=== PATIENT | male | born 1980 | race Two or more races ===

== ENCOUNTER 2017-03-03 14:20 | Emergency (ER) | payer OTHER ==
[~2017-03-03] VITALS: Ht 162.6 cm; Wt 77.1 kg
[2017-03-03 14:20] VITALS: BP 125/81
[2017-03-03] MEDS ORDERED: TDAP [DIPH/PERTUSSIS/TET] 0.5 ML VIAL IM ONE ×2 (14:36→15:00)
--- NOTE | 2017-03-03 14:45 | NUR ---
DAXA NORMAN AT BEDSIDE FOR LAC REPAIR
== END 2017-03-03 15:13 | disposition home or self-care (01) ==
LOC: ER 14:24
DX: S91.012A Laceration without foreign body, left ankle, initial encounter (principal); W22.8XXA Striking against or struck by other objects, initial encounter; Y93.89 Activity, other specified; Y92.89 Other specified places as the place of occurrence of the external cause; Y99.8 Other external cause status
CPT/HCPCS: 12002; 90471; 90715; 99283; A4606; A6402; J3490; Z7610

== ENCOUNTER 2017-03-05 20:51 | Emergency (ER) | payer OTHER ==
--- NOTE | 2017-03-05 21:30 | NUR ---
CALLED FOR TRIAGEL NOT IN LOBBY
--- NOTE | 2017-03-05 22:00 | NUR ---
CALLED AGAIN; NO ANSWER
--- NOTE | 2017-03-05 22:40 | NUR ---
STILL NO ANSWER WHEN CALLED FOR TRIAGE.
== END 2017-03-05 22:41 | disposition left against medical advice (07) ==
LOC: ER 20:53
DX: Z53.21 Procedure and treatment not carried out due to patient leaving prior to being seen by health care provider (principal)
CPT/HCPCS: A4606; Z7610

== ENCOUNTER 2017-03-07 22:30 | Emergency (ER) | payer OTHER ==
[~2017-03-07] VITALS: Ht 162.6 cm; Wt 77.1 kg
[2017-03-07 22:39] VITALS: BP 120/81
== END 2017-03-07 23:09 | disposition home or self-care (01) ==
LOC: ER 22:33
DX: S81.812D Laceration without foreign body, left lower leg, subsequent encounter (principal)
CPT/HCPCS: A4606; Z7502; Z7610

== ENCOUNTER 2019-01-17 15:06 | Emergency (ER) | payer OTHER ==
[~2019-01-17] VITALS: Ht 162.6 cm; Wt 80.3 kg
[2019-01-17 15:06] VITALS: BP 130/73
== END 2019-01-17 16:50 | disposition home or self-care (01) ==
LOC: ER 15:12
DX: M54.16 Radiculopathy, lumbar region (principal)
CPT/HCPCS: 72131-TC

== ENCOUNTER 2019-11-02 23:09 | Emergency (ER) | payer OTHER ==
[~2019-11-02] VITALS: Ht 162.6 cm; Wt 79.4 kg
--- NOTE | 2019-11-02 23:10 | NUR ---
TO ER BED 6 AMBULATORY C/O FLU LIKE X3 1/2 WEEKS (COUGH, CONGESTION, SOB, SORE THROAT). PT REPORTS CP WHEN COUGHING X3 DAYS. PT AAOX4 NO ACUTE DISTRESS NOTED, RESP EVEN AND UNLABORED. SKIN WARM, NONODIAPHORETIC. PLACE PT ON CARDIAC MONITORING, CONTINUOUS POX. PENDING ER MD MCCULLOUGH.
[2019-11-03 00:26] LABS: BASOPHILS # (AUTO) 0.1 /CMM (0.0-0.2); BASOPHILS % (AUTO) 0.9 % (0.0-2.0); EOSINOPHILS % (AUTO) 2.6 % (0.0-6.0); HEMATOCRIT 45 % (39-51); HEMOGLOBIN 15.6 g/dL (13.5-17.5); LYMPHOCYTES # (AUTO) 4.4 /CMM (0.8-4.8); LYMPHOCYTES % (AUTO) 39.7 % (20.0-44.0); MEAN CORPUSCULAR HGB CONC 35 g/dl (31.0-36.0); MEAN CORPUSCULAR VOLUME 89 fL (80-96); MONOCYTES # (AUTO) 0.9 /CMM (0.1-1.30); NEUTROPHILS # (AUTO) 5.4 /CMM (1.8-8.9); NEUTROPHILS % (AUTO) 48.8 % (43.0-81.0); PLATELET COUNT (AUTO) 379 /CMM (150-450); RED BLOOD CELL COUNT(AUTO) 5.03 MIL/uL (4.5-6.0)
[2019-11-03 00:35] LABS: CALCIUM, SERUM 8.8 mg/dL (8.5-10.1); CARBON DIOXIDE 27 mmol/L (21-32); CHLORIDE 105 mmol/L (98-107); CREATININE 1.2 mg/dL (0.6-1.3); GLUCOSE 119 mg/dL (74-106); POTASSIUM 3.7 mmol/L (3.5-5.1); SODIUM SERUM 140 mmol/L (136-145); UREA NITROGEN, BLOOD 18 mg/dL (7-18)
[2019-11-03 00:48] LABS: B-TYPE NATRIURETIC PEPTIDE 7 PG/ML (0-125)
--- NOTE | 2019-11-03 01:15 | NUR ---
PT ASLEEP, EASILY AROUSABLE, NO ACUTE DISTRESS NOTED, RESP EVEN AND UNLABORED. CALL LIGHT WIHTIN REACH WILL CONTINUE TO MONITOR PT CLOSELY.
--- NOTE | 2019-11-03 02:14 | NUR ---
IV removed. Catheter intact and site benign. Pressure and 4x4 applied to site. No bleeding noted. ambulatory with a steady gait. Patient discharged to home in stable condition. Written and verbal after care instructions given. Patient verbalizes understanding of instruction.
[2019-11-03 02:15] VITALS: BP 114/62
== END 2019-11-03 02:16 | disposition home or self-care (01) ==
LOC: ER 23:12
DX: J20.9 Acute bronchitis, unspecified (principal)
CPT/HCPCS: 36415; 71045-TC; 80048-TC; 83880; 84484-TC; 85025-TC

== ENCOUNTER 2020-01-13 09:56 | Emergency (ER) | payer OTHER ==
[~2020-01-13] VITALS: Ht 162.6 cm; Wt 77.1 kg
--- NOTE | 2020-01-13 10:05 | NUR ---
patient came in to the er c/o on and off fever. on room air, breathing evenly and unlabored. connected to the monitor and pulse ox. kept comfortable, will continue to monitor accordingly.
--- NOTE | 2020-01-13 10:36 | NUR ---
wolf virus specimen collected and sent to lab
[2020-01-13 10:37] VITALS: BP 120/66
--- NOTE | 2020-01-13 10:38 | NUR ---
Patient discharged to home in stable condition. Written and verbal after care instructions given. Patient verbalizes understanding of instruction.
== END 2020-01-13 10:38 | disposition home or self-care (01) ==
LOC: ER 09:57
DX: R50.9 Fever, unspecified (principal); R05 Cough; R06.02 Shortness of breath; Z20.828 Contact with and (suspected) exposure to other viral communicable diseases
CPT/HCPCS: 36415

== ENCOUNTER 2020-01-17 00:54 | Emergency (ER) | payer OTHER ==
[~2020-01-17] VITALS: Ht 162.6 cm; Wt 74.8 kg
[2020-01-17 01:05] VITALS: BP 121/81
[2020-01-17] MEDS ORDERED: AZITHROMYCIN 250 MG TABLET ONE (02:26)
[2020-01-17] MEDS ORDERED: AZITHROMYCIN 250 MG TABLET PO ONE (02:30)
--- NOTE | 2020-01-17 02:45 | NUR ---
Patient discharged to home in stable condition. Written and verbal after care instructions given. Patient verbalizes understanding of instruction. Pt ambulatory with a steady gait
== END 2020-01-17 02:47 | disposition home or self-care (01) ==
LOC: ER 00:56
DX: J18.9 Pneumonia, unspecified organism (principal)
CPT/HCPCS: 71045-TC

== ENCOUNTER 2020-01-18 09:57 | Emergency (ER) | payer OTHER ==
[~2020-01-18] VITALS: Ht 162.6 cm; Wt 74.8 kg
--- NOTE | 2020-01-18 10:07 | NUR ---
came in for sob x 5 days,worst last night, cough,recently tested negative for covid 96% on room air, to ER bed 6, hooked to monitor, changed to hosp gown, warm blanket provided, awaiting MD salazar.
--- NOTE | 2020-01-18 10:24 | NUR ---
DR KENT AT BEDSIDE
[2020-01-18] MEDS ORDERED: IPRATROPIUM NEB FS 0.5 MG/2.5 ML AMPUL.NEB NEB ONE (10:30)
[2020-01-18] MEDS ORDERED: ALBUTEROL FS 2.5 MG/3 ML VIAL.NEB NEB ONE (10:30)
[2020-01-18] MEDS ORDERED: LORAZEPAM 1 MG TABLET ONE (10:52)
[2020-01-18] MEDS ORDERED: LORAZEPAM 1 MG TABLET PO ONE (11:00)
[2020-01-18 11:50] VITALS: BP 124/80
--- NOTE | 2020-01-18 11:50 | NUR ---
Patient discharged to home in stable condition. Written and verbal after care instructions given. Patient verbalizes understanding of instruction.
--- NOTE | 2020-01-18 11:51 | NUR ---
INSTRUCTED NOT TO DRIVE.
== END 2020-01-18 11:51 | disposition home or self-care (01) ==
LOC: ER 10:27
DX: F41.9 Anxiety disorder, unspecified (principal)
CPT/HCPCS: 71045-TC

== ENCOUNTER 2023-09-22 19:11 | Emergency (ER) | payer OTHER ==
[~2023-09-22] VITALS: Ht 162.6 cm; Wt 77.1 kg
[2023-09-22] MEDS ORDERED: KETOROLAC TROMETHAMINE INJ 30 MG/ML VIAL ONE (19:41)
[2023-09-22] MEDS ORDERED: CYCL5TAB PO (19:41)
[2023-09-22] MEDS ORDERED: CYCLOBENZAPRINE 10 MG TABLET ONE (19:42)
[2023-09-22] MEDS ORDERED: KETOROLAC TROMETHAMINE INJ 60 MG/2 ML VIAL IM ONE (20:00)
[2023-09-22] MEDS ORDERED: CYCLOBENZAPRINE 10 MG TABLET PO ONE (20:00)
[2023-09-22 20:27] VITALS: BP 125/75; TEMP 98; O2SAT 99
== END 2023-09-22 20:27 | disposition home or self-care (01) ==
LOC: ER 19:13
DX: M54.50 Low back pain, unspecified (principal); E78.00 Pure hypercholesterolemia, unspecified
CPT/HCPCS: 99283; 96372; J1885

== ENCOUNTER 2023-10-30 17:41 | Emergency (ER) | payer OTHER ==
[~2023-10-30] VITALS: Ht 162.6 cm; Wt 77.6 kg
[~2023-10-30 17:41] MED LIST: CYCL5TAB PO
[2023-10-30 18:42] VITALS: BP 111/88; TEMP 98.7; O2SAT 100
== END 2023-10-30 20:40 | disposition left against medical advice (07) ==
LOC: ER 17:43
DX: Z02.9 Encounter for administrative examinations, unspecified (principal); Z53.21 Procedure and treatment not carried out due to patient leaving prior to being seen by health care provider